=== PATIENT | female | born 1950 | race Caucasian/White ===

== ENCOUNTER 2022-03-17 14:05 | Outpatient (RCR) | payer MEDICARE, SELFPAY ==
--- NOTE | 2022-03-17 15:21 | PTOPEVAL ---
Thank you for referring BECKY MOYA to [facility].? The patient is scheduled to be seen for therapy? __2__x/week for 10 visits. Please review, sign, date and return this plan of care DEVANTE. I agree with and certify that the following plan of care is medically necessary. Referring Physician Date Admitting Provider: Attending Provider: GENARO JOSHI Referring Provider: *PT Outpatient Evaluation Start: 03/17/22 14:15 Freq: Status: Active Protocol: Document 03/17/22 14:15 KYLE (Rec: 03/17/22 15:19 [email or web address] [id number]) Therapy Assessment Status Assessment Status Assessment Status Evaluation Evaluation Information Problem Diagnosis unsteady gait Onset 02/17/22 Subjective Information Pt. reports that Tuesday before Query Text:As Reported By Patient/ Easter she suffered a stroke. Family She states that she lost use of the left side. She reports that she was in the hospital and went home with therapy. She states that she continues to note weakness, espeically on her left side. She states that she is still using a walker currently and was not prior to her episode in January. She states that she does have hx of back pain and bulging disc. She reports that she will occassionally drag the left foot when she walks. She states that she is driving despite her issues. She states that she also notices remaining left hand weakness and cannot open a bottle of water. She reports that her goal is to improve her strength. Pain Assessment Timing of Pain Assessment Timing of Pain Assessment Pre-Treatment Pain Scale Pain Scale Used Numeric (1 - 10) Self Report Pain Assessment Back Reported Pain Level 5 Pain Description Aching Pain Score Pain Score 5: Self Report Interventions Used Interventions Used By Clinicians Activity or ADL's,Exercise Upper Extremity Range of Motion General Upper Extremity Range of Motion Gross Upper Extremity Range of Motion -Pt. is limited to 90 degrees Comments left shoulder flexion with hard end feel. She reports
--- NOTE | 2022-04-21 09:34 | PTOPEVAL ---
Thank you for referring BECKY MOYA to [facility].? The patient is scheduled to be seen for therapy? ____x/week for ___ weeks. Please review, sign, date and return this plan of care DEVANTE. I agree with and certify that the following plan of care is medically necessary. Referring Physician Date Admitting Provider: Attending Provider: GENARO JOSHI Referring Provider: *PT Outpatient Evaluation Start: 03/17/22 14:15 Freq: Status: Active Protocol: Document 04/20/22 10:00 [facility] (Rec: 04/20/22 13:59 [facility] [id number]) Therapy Assessment Status Assessment Status Assessment Status Re-evaluation Outpatient Past Medical History Neurological History Hx Seizures Yes Cardiovascular History Hx Hypercholesterolemia Yes Hx Hypertension Yes Gastrointestinal History Hx Gastroesophageal Reflux Disease Yes Hx Hernia Yes Hx Ulcer Yes Reproductive History Hx Post Menopausal Yes Evaluation Information Problem Diagnosis unsteady gait Onset 02/17/22 Subjective Information Pt reports that she feels as Query Text:As Reported By Patient/ though her strength, balance, Family and endurance have improved since beginning therapy. She states that she is using a walker to ambulate most distances, however, when ambulating short distances such as 15-20ft, she will use a cane or hold onto furniture while walking. She would like to continue increasing her strength and endurance to walk with a cane rather than a walker. Pain Assessment Timing of Pain Assessment Timing of Pain Assessment Pre-Treatment Pain Scale Pain Scale Used Numeric (1 - 10) Self Report Pain Assessment Back Reported Pain Level 3 Pain Score Pain Score 3: Self Report Interventions Used Interventions Used By Clinicians Activity or ADL's,Education, Exercise Upper Extremity Range of Motion General Upper Extremity Range of Motion Gross Upper Extremity Range of Motion Pt is able to flex bilateral Comments shoulders to approx 90 degrees AROM in sitting Lower Extremity Muscle Strength Testing Hip Strength Right Hip Flexion Strength 4+ Good + Left Hip Flexion Strength 4 Good Knee Strength Right Knee Flexion Strength 5 Normal Knee Extension
--- NOTE | 2022-05-11 10:20 | PCPTNOTE ---
05-11-2022 Documentation done accidently under Cori Eric PTA. Treatment and documentation done by Omar Demarco PTA
--- NOTE | 2022-06-21 16:21 | PCPTNOTE ---
Mrs. Sánchez attended a total of 14 treatment sessions from 03/17/22 to 05/19/22. She has failed to return to the clinic and will be discahrged from our care. Refer to last daily note for pt. discharge status.
== END 2022-05-19 23:59 | disposition home or self-care (01) ==
LOC: CHSPT 14:05
DX: R26.81 Unsteadiness on feet (principal)
CPT/HCPCS: 97014; 97110; 97112; 97162; 97530; G0283

== ENCOUNTER 2022-03-26 15:02 | Emergency (ER) | payer MEDICARE, SELFPAY ==
--- NOTE | ~2022-03-26 | XR_ITS ---
EXAMINATION: XR chest 1V portable DATE: 03/26/2022 15:36 INDICATION: Shortness of breath with weakness. TECHNIQUE: A single frontal view of the chest was obtained. COMPARISON: None. FINDINGS: The chest demonstrates clear lungs without pneumonia, pleural effusion, or pneumothorax. Th e heart size is normal. IMPRESSION: 1. No acute cardiopulmonary disease. Reviewed, dictated and finalized at location A.
--- NOTE | ~2022-03-26 | CT_ITS ---
EXAMINATION: CT brain wo con INDICATION: Transient alteration of awareness COMPARISON: None TECHNIQUE: Standard unenhanced head CT. The dose-length product (DLP) was 605.33 mGy-cm. The mA was a djusted according to patient size. Iterative reconstruction technique was employed. FINDINGS: There is no intracranial hemorrhage, acute infarction, or abnormal mass lesion. The ventric les are normal. There is no abnormal mass effect or midline shift. There are changes of right parieta l craniotomy with minimal underlying encephalomalacia in the right parietal lobe. The basal cisterns are patent. The orbits are normal. The paranasal and mastoids are normal. IMPRESSION: 1. No acute intracranial abnormality. Reviewed, dictated and finalized at location F.
--- NOTE | 2022-03-26 15:06 | ECG_ITS ---
Measurements Intervals [place] Rate: 67 P: 30 MD: 217 QRS: 1 QRSD: 102 T: 29 QT: 379 QTc: 402 Interpretive Statements SINUS RHYTHM WITH MARKED SINUS ARRHYTHMIA WITH FIRST DEGREE AV BLOCK BASELINE ARTIFACT NO PREVIOUS ECG AVAILABLE FOR COMPARISON Electronically Signed On 03-26-2022 16:50:56 CDT by Barrington Hogue M.D.
[2022-03-26 15:10] VITALS: BP 152/89; PULSE 73; RESP 18; TEMP 36.6; O2SAT 98
[2022-03-26] MEDS: levETIRAcetam 1000MG/NACL100ML 1,000 MG/100 ML BAG 400 MG IVPB (15:20)
[2022-03-26 15:36] LABS: Basophils Absolute Auto 0.03 K/mm3 (0.00-0.10); Basophils Percent Auto 0.6 % (0.0-1.0); Eosinophils Absolute Auto 0.17 K/mm3 (0.02-0.50); Eosinophils Percent Auto 3.1 % (1.0-6.0); Hematocrit 42.2 % (35.0-42.0); Hemoglobin 14.4 g/dL (11.7-13.8); Immature Granulocyte Absolute 0.01 K/mm3 (0.00-0.00); Immature Granulocyte Percent A 0.2 % (0.0-0.0); Lymphocytes Absolute Auto 2.05 K/mm3 (1.10-4.50); Lymphocytes Percent Auto 37.8 % (18.0-42.0); Mean Corpuscular HGB Conc 34.1 g/dL (32.0-36.0); Mean Corpuscular Hemoglobin 32.6 pg (27.0-31.0); Mean Corpuscular Volume 95.5 fL (78.0-102.0); Mean Platelet Volume 10.3 fl (9.2-11.8); Monocytes Absolute Auto 0.49 K/mm3 (0.10-0.90); Neutrophils Absolute Auto 2.7 K/mm3 (1.7-7.2); Neutrophils Percent Auto 49.3 % (50.0-70.0); Platelet Count Result 229 K/mm3 (150-420); Red Blood Count 4.42 M/mm3 (4.20-5.40); Red Cell Distribution Width 11.8 % (11.6-14.4); White Blood Count 5.4 K/mm3 (4.8-10.8)
[2022-03-26] MEDS: SODIUM CHLORIDE 0.9% IV 500 ML 999 ML IV CONT (15:45)
[2022-03-26 15:50] LABS: Glucose Point of Care 96 mg/dl (65-105)
[2022-03-26 15:55] LABS: Lactic Acid Reflex 1.2 mmol/L (0.4-2.0)
--- NOTE | 2022-03-26 15:59 | PC.NURSE ---
pt unable to urinate at this time, resting per cot. call ruiz in reach. side rails up for safety
[2022-03-26 16:05] LABS: Alanine Aminotransferase 13 U/L (14-59); Albumin Level 3.3 g/dL (3.4-5.0); Alkaline Phosphatase 113 U/L (46-116); Anion Gap 8 mmol/L (8-16); Aspartate Amino Transferase 16 U/L (15-37); Bilirubin,Total 0.5 mg/dL (0.00-1.00); Blood Urea Nitrogen 16 mg/dL (7-18); Calcium 9.4 mg/dL (8.5-10.1); Carbon Dioxide 25 mmol/L (21-32); Chloride 107 mmol/L (98-108); Estimated Glomerular Filt Rate > 60; Ethanol < 3 mg/dL (0-6); Glucose 100 mg/dL (70-99); Osmolality Calculated 291 mOsm/kg (285-295); Potassium 3.9 mmol/L (3.5-5.1); Sodium 140 mmol/L (136-145); Total Protein 7.6 g/dL (6.4-8.2); Troponin I 5.3 ng/L (0.00-60.4)
--- NOTE | 2022-03-26 16:42 | ED.SEIZURE ---
HPI - Seizure General Chief Complaint: Seizure Stated Complaint: seizure Time Seen by Provider: 03/26/22 15:06 Source: patient and RN notes reviewed Mode of arrival: wheelchair Limitations: no limitations History of Present Illness HPI Narrative: Pt had a seizure while in PT department today complaint: seizure Onset (ago): minute(s) (15) Description of Episode: loss of consciousness Witnessed: Yes - by Bystander Trauma: No Seizure History: Yes Place: PT department Possible Precipitating Event: none Associated symptoms: denies other symptoms Treatments prior to arrival: none Related Data Home Medications Medication Instructions Recorded Confirmed aspirin 81 mg chewable tablet 1 tablet PO DAILY 03/26/22 03/26/22 atorvastatin 40 mg tablet 1 tablet PO DAILY 03/26/22 03/26/22 citalopram 20 mg tablet 1 tablet PO DAILY 03/26/22 03/26/22 gabapentin 100 mg capsule 1 cap PO BID 03/26/22 03/26/22 levetiracetam 500 mg tablet 1 tablet PO BID 03/26/22 03/26/22 topiramate 50 mg tablet 1.5 tablet PO DIRECTED 03/26/22 03/26/22 Allergies Allergy/AdvReac Type Severity Reaction Status Date / Time phenytoin [From Dilantin] Allergy Unknown Verified 03/26/22 15:58 Sulfa (Sulfonamide Allergy Unknown Verified 03/26/22 15:58 Antibiotics) adhesive tape AdvReac Blister Verified 03/26/22 15:58 [facility] soap Allergy Unknown Uncoded 03/26/22 15:59 Review of Systems Review of Systems: All systems reviewed & are unremarkable except as noted in HPI and below Constitutional: Constitutional: Reports no additional constitutional complaints Eyes: Eyes: Reports no additional eye complaints ENT: Reports system reviewed and no additional complaints, except as documented Cardiovascular: Cardiovascular: Reports no additional cardiovascular complaints Respiratory: Respiratory: Reports no additional respiratory complaints Gastrointestinal: Gastrointestinal: Reports no additional gastrointestinal complaints Genitourinary: Genitourinary: Reports no additional female genitourinary complaints Musculoskeletal: Musculoskeletal: Reports no additional musculoskeletal complaints Integumentary/Breasts: Skin/Breast: Reports system reviewed and no additional complaints, except as docu Neurologic: Reports system reviewed and no additional complaints, except as documented Psychiatric: Psychiatric: Reports no additional psychiatric complaints Endocrine: Endocrine: Reports no additional endocrine complaints Hematologic/Lymphatic: Hematologic/Lymphatic: Reports no additional hematologic/lymphatic complaints Allergic/Immunologic: Allergic/Immunologic: Reports no additional allergic/immunologic complaints [facility] Past Medical History Medical History Generalized seizure Headache Exam Const: General: healthy appearing and no acute distress Nutritional Appearance: obese Orientation/consciousness: patient oriented x3 and confusion (mild, resolved in the ED.) Limitations: no limitations HENMT: Head: normal to inspection Ears: external ears normal, TM's normal bilaterally and EAC's normal General nose exam: Normal external nose present and Normal nares present Face and sinus: normal facial exam and sinuses nontender Mouth: Yes Normal oral and palatal mucosa present and Yes moist mucous membranes Teeth and gingiva: dentition normal Throat: posterior oropharynx normal Eyes: Conjunctivae: conjunctivae normal Pupils: Equal, round and reactive pupils present EOM: EOMs intact bilaterally Neck: Neck: normal visual inspection, no lymphadenopathy and no meningeal signs Chest: Chest palpation & inspection: normal inspection of the chest Resp: Effort & Inspection: normal respiratory effort Auscultation: clear to auscultation bilaterally Cardio: Rate: regular rate Rhythm: regular rhythm GI: GI Palp: Yes Soft to palpation and No Tenderness to palpation present (GI) Auscultation: paula
[2022-03-26 16:50] VITALS: BP 178/92; PULSE 51; RESP 20; TEMP 36.6; O2SAT 97
[2022-03-26] MEDS: ACETAMINOPHEN 325 MG TABLET 650 MG PO (16:55)
[2022-03-26 17:06] LABS: Appearance Urine Clear (Clear); Bilirubin Urine Negative (Negative); Color Urine Light Yellow (Yellow); Glucose Urine UA Negative (Negative); Ketones Urine Negative (Negative); Leukocyte Esterase Ur Negative (Negative); Nitrate Urine Negative (Negative); Protein Urine Negative (Negative); Urobilinogen Urine 0.2 mg/dL (0.2-1.0)
[2022-03-26 17:11] LABS: Add Urine Microscopic? YES; Blood Urine Trace (Negative); RBC Urine 0-2 /hpf (0-2); Squamous Epithelial Cell Urine Few /hpf (Few); WBC Urine 0-3 /hpf (0-3)
[2022-03-26 17:12] LABS: Bacteria Urine Trace /hpf
[2022-03-26 17:13] LABS: Amphetamine Screen Urine Negative (Negative); Barbiturate Screen Urine Negative (Negative); Benzodiazepines Screen Urine Negative (Negative); Cannabinoid Screen Urine Negative (Negative); Cocaine Screen Urine Negative (Negative); Methadone Screen Urine Negative (Negative); Opiate Screen Urine Negative (Negative); Phencyclidine Screen Urine Negative (Negative)
== END 2022-03-26 17:00 | disposition home or self-care (01) ==
PROVIDERS: Emergency Provider Emergency Medicine
DX: G40.409 Other generalized epilepsy and epileptic syndromes, not intractable, without status epilepticus (principal); R51.9 Headache, unspecified
CPT/HCPCS: 36415; 70450; 71045; 80053; 80307; 81001; 82948; 83605; 84484; 85025; 93005; 96365; 99284; A9270; J1953; J7040

== ENCOUNTER 2023-12-20 08:54 | Outpatient (RCR) | payer MEDICARE, SELFPAY ==
--- NOTE | 2023-12-21 07:40 | BUOTOPEVAL ---
Assessment and note entered by Jeannette Dick, OT Evaluation Information Assessment Status Evaluation Diagnosis Closed fracture of left radius and ulna, initial encounter Onset 10/29/23 Subjective Information The patient reports that she goes by So. The patient stated a chair fell out from under her and that is how she broke her wrist. At rest the patient reports that her L wrist is achy at 2/10 and will get up to 10/10 if she has muscle spasms. The patient reports she has been trying to hold her phone and will then get muscle spasms. Dorsal hand is numb and proximal portion of palmar surface of hand is numb reported as maybe mild. Patient reports she has yellow putty from previous therapy and tried to pinch the putty and squeeze but is having a hard time. Reported Pain Level Pain Score 2: Self Report Assessment OT Clinical Summary The patient is a 73 year old female who was referred to outpatient OT due to radius and ulna fracture of L UE. The patient previously demonstrated WNL AROM, inside steward/stewardess strength, no pain and no swelling, she was able to perform all daily tasks with independence and no pain. She now demonstrates severely impaired pain, AROM of L wrist, and is unable to inside steward/stewardess/pinch items for daily tasks. The patient requires skilled OT to address deficits and return to [facility] for independence with ADLs. Plan of Care Interventions Therapeutic Exercise,Manual Therapy,Neuro Re- education,Therapeutic Activities,Hot Pack/Cold Pack,Electrical Stimulation,Sensory Integrative Techn,Self-Care/Home Management,Prosthetic Training,Ultrasound OT Services Indicated Yes Treatment Frequency and 3x/week for 10 visits. Duration These treatments will address the objective and functional deficits as defined above. The patient will be advanced safely and appropriately in order for the patient to progress towards his/her prior level of function. Additional exercises will be introduced and as well as a comprehensive home exercise program upon discharge, if needed, ?to ensure carryover of functional gains achieved in the clinic. This treatment plan has been reviewed and agreement upon by the patient.
--- NOTE | 2023-12-23 16:07 | PCOTNOTE ---
The patient cancelled due to being in too much pain to come to therapy.
--- NOTE | 2024-01-13 14:38 | OTOPDC ---
Assessment and note entered by Jeannette Dick, OT Evaluation Information Assessment Status Progress Subjective Information The patient reports that she can bend her fingers more and she can flex small digit of L hand. She reports that she can almost move her forearm in to supination. She stated that she can twist off some caps on bottles if they are not too tight. She reports that opening doors with knob turn and cutting meat is difficult with L UE. Reported Pain Level Pain Score 7: Self Report Pain Score 4: Self Report Assessment OT Clinical Summary The patient demonstrates minimal progress in L wrist AROM, mobility, and pain symptoms at this time due to continued pain which affects her ability to engage fully in therapeutic exercises and activities. The patient demonstrates progress in fine motor coordination with digit opposition to small finger, increased associate strength with ability to grasp dynamometer, and increased AROM of wrist which has affected her ability to open bottles and perform some ADLs. During activity, there were inconsistencies with what was seen during measurements as the patient was able to perform increased wrist supination and flexion/ extension than during measurements. The patient reports that she is unable to move L wrist without pain and was observed during activities to perform AROM without issues or facial expressions demonstrating pain. The patient to follow up with MD this following week to assess for injury or understand what is causing the pain. The patient to determine with MD further treatment as patient' s pain appears to continue and increase. Plan of Care OT Services Indicated No
== END 2024-01-13 20:00 | disposition home or self-care (01) ==
LOC: CHSOT 08:54
PROVIDERS: Visit Provider Orthopaedic Surgery
DX: S52.92XD Unspecified fracture of left forearm, subsequent encounter for closed fracture with routine healing (principal); S52.202D Unspecified fracture of shaft of left ulna, subsequent encounter for closed fracture with routine healing
CPT/HCPCS: 97110; 97140; 97166; 97530